=== PATIENT | male | born 1965 | race African-American/Black ===

== ENCOUNTER 2019-06-12 09:48 | Emergency (ER) | payer MEDICARE, MEDICAID ==
[2019-06-12 09:54] VITALS: BP 150/103
[2019-06-12] MEDS ORDERED: DOXYCYCLINE HYCLATE 100 MG TABLET PO ONE (10:19)
--- NOTE | 2019-06-12 10:22 | ER Document Report ---
ED Skin Rash/Insect Bite/Abscs - General Chief Complaint: Abscess Stated Complaint: ABSCESS/CHIN Time Seen by Provider: 06/12/19 10:17 Primary Care Provider: YUE ASHER MD [Primary Care Provider] - Follow up as needed Mode of Arrival: Ambulatory Information source: Patient Notes: 54-year-old male presented to ED for complaint of painful swollen area to the right chin. He states been present for several days. He states he thinks he might of got bit by something and then he scratched it. At first he thought it was a dental pain but when I showed him the swollen area he said yes he got bit by something and he scratched it. The area is draining profusely purulent drainage. I did send a wound culture. TRAVEL OUTSIDE OF THE [place] IN LAST 30 DAYS: No - HPI Patient complains to provider of: Tender/swollen area Onset: Other Onset/Duration: Gradual Quality of pain: Pressure, Sharp Severity: Moderate Pain Level: 4 Skin Character: Abscess Skin Temperature: Warm Quality of rash: Painful Identify cause: Yes Exacerbated by: Other - Outpatient Relieved by: Denies Similar symptoms previously: No Recently seen / treated by doctor: No - Related Data Allergies/Adverse Reactions: No Known Allergies Allergy (Verified 06/12/19 10:09) Home Medications: htn. anemia Past Medical History - General Information source: Patient - Social History Smoking Status: Never Smoker Chew tobacco use (# tins/day): No Frequency of alcohol use: None Drug Abuse: None Lives with: Family Family History: Reviewed & Not Pertinent Patient has suicidal ideation: No Patient has homicidal ideation: No - Medical History Medical History: Other - Iron deficiency anemia - Past Medical History Cardiac Medical History: Reports: Hx Hypertension Pulmonary Medical History: Reports: None EENT Medical History: Reports: None Neurological Medical History: Reports: None Endocrine Medical History: Reports: None Renal/ Medical History: Reports: None Malignancy Medical History: Reports None GI Medical History: Reports: None Musculoskeletal Medical History: Reports None Skin Medical History: Reports None Psychiatric Medical History: Reports: None Traumatic Medical History: Reports: None Infectious Medical History: Reports: None Surgical Hx: Negative Review of Systems - Review of Systems Constitutional: No symptoms reported EENT: No symptoms reported Cardiovascular: No symptoms reported Respiratory: No symptoms reported Gastrointestinal: No symptoms reported Genitourinary: No symptoms reported Male Genitourinary: No symptoms reported Musculoskeletal: No symptoms reported Skin: Lesions - Right chin Hematologic/Lymphatic: No symptoms reported Neurological/Psychological: No symptoms reported -: Yes All other systems reviewed and negative Physical Exam - Vital signs Vitals: Temp Pulse Resp BP Pulse Ox 98.4 F 80 20 150/103 H 100 06/12/19 09:53 06/12/19 09:53 06/12/19 09:53 06/12/19 09:53 06/12/19 09:53 Interpretation: Normal - General General appearance: Appears well, Alert - HEENT Head: Atraumatic, Tenderness, Other - Abscess right chin Eyes: Normal Pupils: PERRL Ears: Normal External canal: Normal Tympanic membrane: Normal Sinus: Normal Nasal: Normal Mouth/Lips: Normal Mucous membranes: Normal Pharynx: Normal Neck: Anterior cervical chain, Other - Abscess right chin - Respiratory Respiratory status: No respiratory distress Chest status: Nontender Breath sounds: Normal Chest palpation: Normal - Cardiovascular Rhythm: Regular Heart sounds: Normal auscultation Murmur: No - Abdominal Inspection: Normal Distension: No distension Bowel sounds: Normal Tenderness: Nontender Organomegaly: No organomegaly - Back Back: Normal, Nontender - Extremities General upper extremity: Normal inspection, Nontender, Normal color, Normal ROM, Normal temperature General lower extremity: Normal inspection, Nontender, Normal color, Normal ROM, Normal temperature, Normal weight bearing. No: Jeffry's sign - Neurological Neuro grossly intact: Yes Cognition: Normal Orientation: AAOx4 Lauren Coma Scale Eye Opening: Spontaneous Lauren Coma Scale Verbal: Oriented [place] Coma Scale Motor: Obeys Commands [place] Coma Scale Total: 15 Speech: Normal Motor strength normal: LUE, RUE, LLE, RLE Sensory: Normal - Psychological Associated symptoms: Normal affect, Normal mood - Skin Skin Temperature: Warm Skin Moisture: Dry Skin Color: Normal Skin irregularity: Abscess - Right can Location of irregularity: Face Irregularity with: Swelling, Tenderness, Warmth Course - Vital Signs Vital signs: Temp Pulse Resp BP Pulse Ox 98.4 F 80 20 150/103 H 100 06/12/19 09:53 06/12/19 09:53 06/12/19 09:53 06/12/19 09:53 06/12/19 09:53 Discharge - Discharge Clinical Impression: Facial abscess Condition: Stable Disposition: HOME, SELF-CARE Instructions: Family Physicians / Practices Additional Instructions: ABSCESS: You have an abscess (boil). This a pus-forming infection, usually due to staph. Some boils may be left to drain on their own, but most require lancing. From the time the tender lump first appears, it may be three or four days before the abscess is ready to valentino. Local heat and rest help at this stage of treatment. An antibiotic may prevent spread of the infection. Once the abscess is opened, packing may be placed into it. This is done so pus is not sealed inside by premature closure of the cavity. The packing will be removed at your follow-up visit or you may be advised to remove it yourself at home. Sometimes this packing must be replaced a few times during healing. The wound will heal with surprisingly little scar. Depending on the size and location of an abscess, healing can take one to four weeks. You may shower and wash the area around the incision site two or three times a day. Antibiotics may be prescribed, but are usually not necessary after an abscess has been drained. If you develop fever, chills, worsening pain, or increasing swelling in the area, call the doctor or return immediately. DOXYCYCLINE: Doxycycline (Vibramycin, Doryx) is an antibiotic of the tetracycline family . This type of drug is useful for infections of the respiratory tract and genital tract, and is sometimes used for intestinal infections. Unlike most tetracyclines, doxycycline can be taken with food. It is longer acting, and (usually) less prone to side effects than regular tetracycline. Tetracycline antibiotics can stain immature teeth and SHOULD NOT BE TAKEN BY CHILDREN, NURSING MOTHERS, OR WOMEN. Tetracyclines can make you more prone to sunburn. Abdominal cramping, nausea, and diarrhea are occasional side effects. Women may experience vaginal yeast infections. Call the doctor at once if you develop hives, itching, shortness of breath, or lightheadedness. Epsom Salt Soaks Soak the wound area in a container of warm epsom salt water. If you can't get the wound area into a bucket or la, use a folded towel soaked in the epsom salt solution and apply to the area. Use clean hot tap water (about the temperature of a very warm bath), mixing in about one (1) teaspoon for every pint of water. Two gallon --> 16 teaspoons Epsom Salts One gallon --> 8 teaspoons Epsom Salts Two quarts --> 4 teaspoons Epsom Salts One quart --> 2 teaspoons Epsom Salts Soak the wound for about 20 minutes while gently moving it around in the water. Repeat this four (4) times a day. FOLLOW-UP CARE: Most simple abscesses will not require a follow up visit. If you had packing placed in the abscess, remove it as instructed by the physician. If you have been referred to a physician for follow-up care, call the physicians office for an appointment as you were instructed or within the next two days. If you experience worsening or a significant change in your symptoms, return to the Emergency Department at any time for re-evaluation. Prescriptions: Doxycycline Hyclate 100 mg PO BID #20 capsule Forms: Elevated Blood Pressure Referrals: YUE ASHER MD [Primary Care Provider] - Follow up as needed
== END 2019-06-12 10:40 | disposition home or self-care (01) ==
LOC: ER 09:48
DX: L02.01 Cutaneous abscess of face (principal); I10 Essential (primary) hypertension; D50.9 Iron deficiency anemia, unspecified; Z79.899 Other long term (current) drug therapy
CPT/HCPCS: 99282; 87070; 87205; 87075; 87077; 87186; A9270

== ENCOUNTER 2019-08-24 07:20 | Emergency (ER) | payer MEDICARE, MEDICAID ==
--- NOTE | 2019-08-24 08:32 | ER Document Report ---
ED General - General Chief Complaint: Hand Pain Stated Complaint: HAND PAIN Time Seen by Provider: 08/24/19 08:00 TRAVEL OUTSIDE OF THE [place] IN LAST 30 DAYS: No - HPI Notes: Patient is a 54-year-old male who presents to the emergency department for evaluation. Initially, the patient states he is actually here to have paperwork filled out for school. He is trying to get cleared to get federal loans, return to school. He explained that he is try to get this paperwork filled out at his primary care provider's office as well as his pain management doctor for his back. He states is not having any success in having them do it appropriately, so he comes here. The patient states that he has some numbness in his right finger, his index finger, states is been going on for about a year. He states in the mornings it is very stiff and he has difficulty moving it. 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 He thought he may be evaluated for that. In regards to his blood pressure the patient states that he was on 6 medications for blood pressure at one time. He states he is not taking them at this time. He really does not give me a clear reason as to why. He does admit that he is Saturday to his primary care provider's office. At this time he denies any difficulty seeing, speaking, swallowing. No chest pain or difficulty breathing. He states he does get chest pain intermittently when he is "upset about his paperwork and his son." Eating and drinking normally. States he is urinating without difficulty. - Related Data Allergies/Adverse Reactions: No Known Allergies Allergy (Verified 08/24/19 07:22) Home Medications: zyprexa but has not taken in a "few days" Past Medical History - General Information source: Patient - Social History Smoking Status: Never Smoker Chew tobacco use (# tins/day): No Frequency of alcohol use: None Drug Abuse: None Family History: Reviewed & Not Pertinent, DM, Hypertension Patient has suicidal ideation: No Patient has homicidal ideation: No - Past Medical History Cardiac Medical History: Reports: Hx Hypertension Pulmonary Medical History: Reports: Hx Asthma Musculoskeletal Medical History: Reports Hx Musculoskeletal Trauma Psychiatric Medical History: Reports: Hx Bipolar Disorder Review of Systems - Review of Systems Constitutional: No symptoms reported EENT: No symptoms reported Cardiovascular: See HPI Respiratory: No symptoms reported Gastrointestinal: No symptoms reported Genitourinary: No symptoms reported Musculoskeletal: No symptoms reported Skin: No symptoms reported Neurological/Psychological: No symptoms reported Physical Exam - Vital signs Vitals: Temp Pulse BP Pulse Ox 98.5 F 76 206/133 H 99 08/24/19 07:25 08/24/19 07:25 08/24/19 07:25 08/24/19 07:25 - Notes Notes: This is a 54-year-old male who appears his stated age. His speech is mildly pressured, but he is appropriate and cooperative with examiner. Vital signs reviewed, please refer to chart. Head is normocephalic, atraumatic. Pupils equal round, reactive to light. Neck is supple without meningismus. Heart is regular rate and rhythm. Lungs are clear to auscultation bilaterally. Abdomen is soft, nontender, normoactive bowel sounds throughout. Extremities without cyanosis, clubbing. Posterior calves are nontender. Peripheral pulses are equal. Skin is warm and dry. Patient is awake, alert, oriented x3. Cranial nerves II - XII are grossly intact without focal neurological deficits. Strength is plus 5 out of 5 bilateral upper and lower extremities. Sensation is intact. Reflexes symmetrical. Intact [id number], rapid alternating movements, [id number]. Examination of the right hand yields full range of motion of the wrist, fingers, thumb. He has diminished sensation to the radial aspect of the index finger. No cyanosis or clubbing. Capillary refill brisk, radial pulses 2+. Course - Re-evaluation Re-evalutation: 08/24/19 08:30 Patient presents to the emergency department for evaluation. I explained to him initially that I am unable to fill out any paperwork in regards to his schooling. It would certify my understanding of him as a long-term patient, and I am unable to do so. He voiced understanding to this. Otherwise, I am concerned about his elevated hypertension and signs of endorgan damage. He was amenable to having this worked up. In regards to his finger, he has some mildly diminished sensation on the radial aspect of the right index finger but full passive and active range of motion. At this point I explained to him that if he has had this numbness for a year there is little I can do about it. He voiced understanding to this as well. 08/24/19 10:03 Laboratory investigations failed to reveal any signs of significant endorgan damage. His finger numbness is chronic, I do not have a clear etiology for this, but he has no other focal neurological deficits. He is told that he needs to follow-up with primary care in regards to having his forms filled out as well as being treated for his high blood pressure. He understands this and was discharged. - Vital Signs Vital signs: Temp Pulse Resp BP Pulse Ox 98.5 F 76 206/133 H 99 08/24/19 07:25 08/24/19 07:25 08/24/19 07:25 08/24/19 07:25 - Laboratory Result Diagrams: 08/24/19 08:39 08/24/19 08:39 Laboratory results interpreted by me: 08/24/19 08/24/19 08/24/19 08:35 08:39 08:39 WBC 2.7 L Plt Count 123 L Absolute Neuts (auto) 1.3 L Potassium 3.5 L Carbon Dioxide 31 H Urine Urobilinogen 2.0 H - EKG Interpretation by Me Additional EKG results interpreted by me: 08/24/19 10:04 Sinus mechanism with a rate of 59 bpm. Normal axis and intervals. Nonspecific ST changes, but no acute changes concerning for ischemia or infarction. No old studies available for comparison. Discharge - Discharge Clinical Impression: Essential hypertension, Numbness of right index finger Condition: Stable Disposition: HOME, SELF-CARE Instructions: High Blood Pressure ([facility]), Numbness or Paresthesia ([facility]) Additional Instructions: You need to contact her primary care provider for follow-up appointment as it is possible. You need to be back on your antihypertensive medications. No clear cause is found for the numbness and tingling in your finger. Return to the emergency department for worsening or new concerning symptoms of any sort.
[2019-08-24 09:00] LABS: ABSOLUTE EOSINOPHILS # (AUTO) 0.1 10^3/uL (0.0-0.6); ABSOLUTE LYMPHOCYTES (AUTO) 1.1 10^3/uL (0.5-4.7); ABSOLUTE MONOCYTES (AUTO) 0.3 10^3/uL (0.1-1.4); ABSOLUTE NEUT (AUTO) 1.3 10^3/uL (1.7-8.2); BASOPHILS % (AUTO) 0.4 % (0-2); EOSINOPHILS % (AUTO) 4.6 % (0-6); HEMATOCRIT 41.2 % (37.9-51.0); HEMOGLOBIN 13.7 g/dL (13.5-17.0); LYMPHOCYTES % (AUTO) 39.4 % (13-45); MEAN CORPUSCULAR HEMOGLOBIN 30.1 pg (27.0-33.4); MEAN CORPUSCULAR HGB CONC 33.2 g/dL (32.0-36.0); MEAN CORPUSCULAR VOLUME 91 fl (80-97); MONOCYTES % (AUTO) 9.3 % (3-13); PLATELET COUNT 123 10^3/uL (150-450); RED BLOOD COUNT 4.55 10^6/uL (4.35-5.55); RED CELL DISTRIBUTION WIDTH 13.4 % (11.5-14.0); SEGMENTED NEUTROPHILS % (AUTO) 46.3 % (42-78); TOTAL CELLS COUNTED % (AUTO) 100 %; WHITE BLOOD COUNT 2.7 10^3/uL (4.0-10.5)
[2019-08-24 09:13] LABS: APPEARANCE,URINE SLIGHTLY-CLOUDY; BILIRUBIN,URINE NEGATIVE (NEGATIVE); COLOR,URINE YELLOW; GLUCOSE, URINE NEGATIVE (NEGATIVE); KETONES,URINE NEGATIVE (NEGATIVE); LEUKOCYTE ESTERASE,URINE NEGATIVE (NEGATIVE); NITRITE,URINE NEGATIVE (NEGATIVE); PROTEIN,URINE NEGATIVE (NEGATIVE); URINE SPECIFIC GRAVITY 1.019
[2019-08-24 09:25] LABS: ALBUMIN 4.1 g/dL (3.5-5.0); ALKALINE PHOSPHATASE 50 U/L (38-126); ANION GAP 7 (5-19); ASPARTATE AMINO TRANSFERASE 26 U/L (17-59); BILIRUBIN,DIRECT 0.1 mg/dL (0.0-0.4); BILIRUBIN,TOTAL 0.8 mg/dL (0.2-1.3); BLOOD UREA NITROGEN 11 mg/dL (7-20); CALCIUM 9.1 mg/dL (8.4-10.2); CARBON DIOXIDE 31 mmol/L (22-30); CHLORIDE 103 mmol/L (98-107); GLUCOSE 85 mg/dL (75-110); POTASSIUM 3.5 mmol/L (3.6-5.0); TOTAL PROTEIN 8.2 g/dL (6.3-8.2)
[2019-08-24 10:11] VITALS: BP 164/120
--- NOTE | 2019-08-24 13:21 | EKG REPORT ---
SEVERITY:- ABNORMAL ECG - SINUS RHYTHM PROBABLE LEFT ATRIAL ABNORMALITY CONSIDER ANTEROSEPTAL INFARCT : Confirmed by: Isaac Hill MD 24-Aug-2019 13:21:17
== END 2019-08-24 10:18 | disposition home or self-care (01) ==
LOC: ER 07:20
DX: R20.0 Anesthesia of skin (principal); M79.641 Pain in right hand; I10 Essential (primary) hypertension
CPT/HCPCS: 36415; 80053; 81001; 84484; 85025; 93005; 93010

== ENCOUNTER 2020-02-02 15:33 | Emergency (ER) | payer MEDICARE, MEDICAID ==
[2020-02-02] MEDS ORDERED: DIPH/PERTUSS(ACELL)/TETANUS VAC/PF 0.5 ML SYR (>=10YO) IM ONE (16:09)
--- NOTE | 2020-02-02 16:14 | ER Document Report ---
HPI - HPI Time Seen by Provider: 02/02/20 16:02 Notes: 54-year-old male presents emergency room for left knee pain after a thorn was taken out 2 days ago by his son any needle. Patient states that he had a thorn in his left knee for the last 15 years, when he was bending over 2 days ago to take care of something outside, thorn was very superficial and he had his son remove the thorn with a needle. Unsure of his last tetanus. States that time that he has had pain radiate from his knee up to his thigh. Denies any new injuries, new trauma. Denies fevers, chills, chest pain,palpitations, shortness of breath, dyspnea, nausea, vomiting, diarrhea, abdominal pain, hematuria,blurred vision, double vision, loss of vision, speech changes, LH, dizziness, syncope, headaches, wheezing, ST, URI, neck pain, weakness, bowel or bladder dysfunction, saddle anesthesia, numbness or tingling in bilateral upper or lower extremities equally, muscle paralysis, weakness in bilateral upper or lower extremities equally or rash. Denies IV drug use. REVIEW OF SYSTEMS: CONSTITUTIONAL : Denies fever, chills, or sweats. Denies recent illness. EENT: Denies eye, ear, throat, or mouth pain or symptoms. Denies nasal or sinus congestion. CARDIOVASCULAR: Denies chest pain. RESPIRATORY: Denies cough, cold, or chest congestion. Denies shortness of breath, difficulty breathing, or wheezing. GASTROINTESTINAL: Denies abdominal pain. Denies nausea, vomiting, or diarrhea. Denies constipation. Last BM: GENITOURINARY: Denies difficulty urinating, painful urination, burning, frequency, or blood in urine. FEMALE GENITOURINARY: Denies vaginal bleeding, abnormal or irregular periods. LMP: MUSCULOSKELETAL: reports left knee pain. Denies neck or back pain or joint pain or swelling. SKIN: Denies rash or skin lesions. HEMATOLOGIC : Denies easy bruising or bleeding. LYMPHATIC: Denies swollen, enlarged glands. NEUROLOGICAL: Denies altered mental status or loss of consciousness. Denies headache. Denies weakness or paralysis or loss of use of either side. Denies problems with gait or speech. Denies sensory or motor loss. PSYCHIATRIC: Denies anxiety or stress or depression. ALL OTHER SYSTEMS REVIEWED AND NEGATIVE. MEDICATIONS: I agree with the patient medications as charted by the RN. ALLERGIES: I agree with the allergies as charted by the RN. PAST MEDICAL HISTORY/PAST SURGICAL HISTORY: Reviewed and agree as charted by RN. SOCIAL HISTORY: Reviewed and agree as charted by RN. FAMILY HISTORY: No significant familial comorbid conditions directly related to patient complaint EXAM: Reviewed vital signs as charted by RN. PHYSICAL EXAMINATION:reviewed vital signs by RN GENERAL: Well-appearing, well-nourished and in no acute distress. HEAD: Atraumatic, normocephalic. EYES: Pupils equal round and reactive to light, extraocular movements intact, sclera anicteric, conjunctiva are normal. ENT: Nares patent, oropharynx clear without exudates. Moist mucous membranes. NECK: Normal range of motion, supple without lymphadenopathy LUNGS: Breath sounds clear to auscultation bilaterally and equal. No wheezes rales or rhonchi. HEART: Regular rate and rhythm without murmurs ABDOMEN: Soft, nontender, nondistended abdomen. No guarding, no rebound. No masses appreciated. Musculoskeletal: Normal range of motion, no pitting or edema. No cyanosis. left knee pain with palpation to anterior aspect of knee. no noted swelling, erythema, negative vince's sign. anterior and posterior drawer test negative. Dtr + 2 in BLE. Full motor and sensory function to BLE equally. No open wounds. No induration or drainage. Strength 5 out of 5 bilaterally equally. Ankle examination normal. Squeeze test negative. Hip examination normal. Pulses + 2 bilaterally and equally.negative squeeze bilaterally and equally. NEUROLOGICAL: Cranial nerves grossly intact. Normal speech, normal gait. Normal sensory, motor exams PSYCH: Normal mood, normal affect. SKIN: Warm, Dry, normal turgor, no rashes or lesions noted. - REPRODUCTIVE Reproductive: DENIES: : Past Medical History - General Information source: Patient - Social History Smoking Status: Unknown if Ever Smoked Family History: Reviewed & Not Pertinent, DM, Hypertension - Past Medical History Cardiac Medical History: Reports: Hx Hypertension Pulmonary Medical History: Reports: Hx Asthma Musculoskeletal Medical History: Reports Hx Musculoskeletal Trauma Psychiatric Medical History: Reports: Hx Bipolar Disorder Vertical Provider Document - CONSTITUTIONAL Agree With Documented VS: Yes Exam Limitations: No Limitations General Appearance: WD/WN - INFECTION CONTROL TRAVEL OUTSIDE OF THE [place] IN LAST 30 DAYS: No Course - Re-evaluation Re-evalutation: 02/02/20 17:10 AFebrile vital stable no distress. Nurses notes reviewed. X-ray negative for any foreign body, dislocation, fracture. Discussed with patient that he needs to apply heat 20 minutes on 20 minutes off several times a day, alternate between Tylenol and ibuprofen for pain control. Advised to follow-up with commercial collections specialist and primary care provider for further evaluation. After performing a Medical Screening Examination, I estimate there is LOW risk for OPEN FRACTURE, COMPARTMENT SYNDROME, DEEP VENOUS THROMBOSIS, ACUTE TENDON RUPTURE, or NEUROVASCULAR INJURY thus I consider the discharge disposition reasonable. I have reevaluated this patient multiple times and no significant life threatening changes are noted. The patient and I have discussed the diagnosis and risks, and we agree with discharging home to closely follow-up with their primary doctor or the referral orthopedist with the understanding that symptoms and presentations can change. We also discussed returning to the Emergency Department immediately if new or worsening symptoms occur. We have discussed the symptoms which are most concerning (e.g., changing or worsening pain, numbness, weakness) that necessitate immediate return - Vital Signs Vital signs: Temp Pulse Resp BP Pulse Ox 99.8 F 81 16 155/104 H 99 02/02/20 15:56 02/02/20 15:56 02/02/20 15:56 02/02/20 15:56 02/02/20 15:56 Discharge - Discharge Clinical Impression: Left knee pain Qualifiers: Chronicity: acute Qualified Code(s): M25.562 - Pain in left knee Condition: Stable Disposition: HOME, SELF-CARE Instructions: Sprained Knee ([facility]) Additional Instructions: Your x-ray was negative for any foreign body. Please apply heat 20 minutes on 20 minutes off several times a day. Please alternate between Tylenol every 4 for pain control. Elevate a little hard. Please follow-up commercial collections specialist on x-ray for 48 hours. Return immediately for any new or worsening symptoms. Follow up with primary care provider, call tomorrow to make followup appointment. Prescriptions: Ibuprofen [Ibu] 600 mg PO Q6HP PRN #20 tablet PRN Reason: Referrals: WAYNE HALLMAN MD [ACTIVE STAFF] - Follow up as needed MADAI ESTRADA DO [NO LOCAL MD] - Follow up as needed Print Language: Tamazight
--- NOTE | 2020-02-02 16:33 | RADIOLOGY REPORT (SQ) ---
EXAM DESCRIPTION: KNEE LEFT 2 VIEWS IMAGES COMPLETED DATE/TIME: 02/02/2020 4:23 pm REASON FOR STUDY: knee pain s/p thorn removed x15y. r/o fb COMPARISON: None. NUMBER OF VIEWS: Two views. TECHNIQUE: AP and lateral radiographic images acquired of the left knee. LIMITATIONS: None. FINDINGS: MINERALIZATION: Normal. BONES: No acute fracture or dislocation. No worrisome bone lesions. JOINT: No effusion. SOFT TISSUES: No soft tissue swelling. No radio-opaque foreign body. OTHER: No other significant finding. IMPRESSION: No acute findings TECHNICAL DOCUMENTATION: JOB ID: [id number] 2010 [employer]- All Rights Reserved Reading location - IP/workstation name: [id number]
[2020-02-02 17:20] VITALS: BP 169/114
== END 2020-02-02 17:22 | disposition home or self-care (01) ==
LOC: ER 15:33
DX: M25.562 Pain in left knee (principal); Z23 Encounter for immunization; I10 Essential (primary) hypertension; J45.909 Unspecified asthma, uncomplicated
CPT/HCPCS: 90471; 90715; 99283